=== PATIENT | female | born 1975 | race Caucasian/White ===

== ENCOUNTER → 2016-05-12 | Outpatient (CLI) | payer OTHER ==
[~2016-05-12] MED LIST: METR0.754 TD
--- NOTE | 2016-05-12 11:28 | DIAGNOSTIC IMAGING REPORT ---
THORACIC SPINE 3 VIEWS ROUTINE CLINICAL HISTORY: M51.9 Thoracic disc [id number] back pain and arm numbness COMPARISON STUDY: No previous studies for comparison. FINDINGS: There is a mild scoliosis. There are mild to moderate multilevel degenerative changes. No fractures subluxations or destructive lesions are visualized. The paraspinal line is not displaced. IMPRESSION: Mild scoliosis and degenerative change. No fractures or subluxations are visualized. Electronically signed by: Frankie Abreu M.D. 05/12/2016 11:27 AM Dictated Date/Time: 05/12/2016 11:26 AM
== END | disposition home or self-care (01) ==
LOC: C.RAD1850 11:05
PROVIDERS: ATTEND Internal Medicine
DX: M51.9 Unspecified thoracic, thoracolumbar and lumbosacral intervertebral disc disorder (principal)

== ENCOUNTER → 2016-05-26 | Outpatient (CLI) | payer OTHER ==
[~2016-05-26] MED LIST changes: +GADAVIST IV PRN
--- NOTE | 2016-05-26 10:31 | DIAGNOSTIC IMAGING REPORT ---
MRI THE THORACIC SPINE WITHOUT AND WITH GADOLINIUM CLINICAL HISTORY: Thoracic spine pain, numbness. Arm radiculopathy. COMPARISON STUDY: Conventional radiographic study dated 05/12/2016 FINDINGS: Imaging was performed in the sagittal and axial planes before and after the administration of 8.1 cc of intravenous Gadavist. There are no suspicious areas of marrow replacement No intrinsic cord lesions are visualized. There are no pathologically enhancing lesions. There is a small broad-based T4-5 disc protrusion. There is a small right paracentral T6-7 disc protrusion. There is a small left paracentral T7-T8 disc protrusion. There is a moderate central T9-10 disc protrusion. No paraspinal masses are visualized. IMPRESSION: 1. No pathologic masses identified. 2. T4-5, T6-7, T7-8, and T9-10 disc protrusions. Electronically signed by: Frankie Abreu M.D. 05/26/2016 10:29 AM Dictated Date/Time: 05/26/2016 10:14 AM
== END | disposition home or self-care (01) ==
LOC: C.MRIBC 08:46
PROVIDERS: ATTEND Internal Medicine
DX: M51.9 Unspecified thoracic, thoracolumbar and lumbosacral intervertebral disc disorder (principal); M12.88 Other specific arthropathies, not elsewhere classified, other specified site; M41.9 Scoliosis, unspecified; R20.0 Anesthesia of skin; R93.7 Abnormal findings on diagnostic imaging of other parts of musculoskeletal system; S24.159A Other incomplete lesion at unspecified level of thoracic spinal cord, initial encounter; X58.XXXA Exposure to other specified factors, initial encounter

== ENCOUNTER → 2016-07-16 | Outpatient (CLI) | payer OTHER ==
[~2016-07-16] MED LIST changes: -GADAVIST IV PRN
[2016-07-16 11:35] LABS: BASO % 0.3 %; BASO ABS # 0.02 K/uL (0-0.2); COMPLETE YES; EOS % 1.2 %; HEMATOCRIT 41.1 % (37-47); IG% 0.2 %; LYMPH ABS # 1.95 K/uL (1.2-3.4); MEAN CELL VOLUME 86.2 fL (80-100); MEAN CORPUSCULAR HEMOGLOBIN 28.5 pg (25-34); MEAN CORPUSCULAR HGB CONC 33.1 g/dl (32-36); MEAN PLATELET VOLUME 11.3 fL (7.4-10.4); MONO % 7.7 %; NEUT % 60.6 %; PLATELET COUNT 283 K/uL (130-400); RED BLOOD COUNT 4.77 M/uL (4.2-5.4)
[2016-07-16 11:48] LABS: ALT/SGPT 25 U/L (12-78); BLOOD UREA NITROGEN 15 mg/dl (7-18); BUN/CREATININE RATIO 17.8 (10-20); CARBON DIOXIDE 24 mmol/L (21-32); CHLORIDE 109 mmol/L (98-107); CREATININE 0.82 mg/dl (0.60-1.20); GLUCOSE 95 mg/dl (70-99); POTASSIUM 4.1 mmol/L (3.5-5.1); SODIUM 141 mmol/L (136-145)
[2016-07-16 11:50] LABS: CALCIUM 8.6 mg/dl (8.5-10.1)
[2016-07-16 12:08] LABS: ALB/GLOB RATIO 0.8 (0.9-2); ALKALINE PHOSPHATASE 54 U/L (45-117); AST/SGOT 11 U/L (15-37); THYROID STIMULATING HORMONE 0.677 uIu/ml (0.300-4.500)
[2016-07-16 13:40] LABS: LYME DISEASE AB IGG NEG (NEG); LYME DISEASE AB IGM NEG (NEG)
== END | disposition home or self-care (01) ==
LOC: C.LAB1850 10:09
PROVIDERS: ATTEND Internal Medicine
DX: R26.9 Unspecified abnormalities of gait and mobility (principal)

== ENCOUNTER → 2016-10-26 | Outpatient (CLI) | payer OTHER ==
[2016-10-26 10:42] LABS: C-REACTIVE PROTEIN 0.38 mg/dl (0-0.29); RHEUMATOID FACTOR < 10.0 U/mL (0-15)
[2016-11-01 10:17] LABS: ALBUMIN 3.7 G/DL (3.8-4.8); ANTI-CENTROMERE AB <1.0 NEG AI (<1.0 NEG); ANTI-SS-A <1.0 NEG AI (<1.0 NEG); ANTI-SS-B <1.0 NEG AI (<1.0 NEG); DNA ds CRITHIDIA NEGATIVE (NEGATIVE); GAMMA GLOBULIN 1.2 G/DL (0.8-1.7); MICROSOMAL AB <1 IU/ML (<9); Sm Antibody <1.0 NEG AI (<1.0 NEG); TOTAL PROTEIN 6.9 G/DL (6.2-8.3); VIT B1 PLASMA(THIAMIN)**90353 11 nmol/L (8-30); VITAMIN B6** TC 926 5.6 ng/mL (2.1-21.7)
== END | disposition home or self-care (01) ==
LOC: C.LAB1850 08:58
PROVIDERS: ATTEND Psychiatry & Neurology Neurology
DX: R20.0 Anesthesia of skin (principal); H54.7 Unspecified visual loss; R53.83 Other fatigue; M62.838 Other muscle spasm

== ENCOUNTER → 2016-10-27 | Outpatient (CLI) | payer OTHER ==
[~2016-10-27] MED LIST changes: +GADAVIST IV PRN
--- NOTE | 2016-10-27 20:00 | DIAGNOSTIC IMAGING REPORT ---
BRAIN COMBO FOR MS CLINICAL HISTORY: Gait disturbance. Numbness. Fatigue. Vision problems. COMPARISON STUDY: Head CT March 31, 2010. TECHNIQUE: Utilizing a 1.5 Farzaneh magnet and dedicated coil, multiplanar, multi echo imaging of the brain was performed pre and postcontrast administration according to the multiple sclerosis protocol. Injection of 8 cc of Gadavist IV was uneventful. FINDINGS: There are no areas of restricted diffusion. No acute intracranial hemorrhage, midline shift or mass effect is present. Brain volume is normal. Ventricular system is normal. Basilar cisterns are patent. There are no extra-axial collections. Flow-voids for the major intracranial vessels are present. There is no intracranial mass or pathologic enhancement. No areas of parenchymal signal abnormality are present. Calvarium is unremarkable. Orbits and sinuses are unremarkable. IMPRESSION: Normal MRI of the brain. Electronically signed by: Kris Peter M.D. 10/27/2016 7:59 PM Dictated Date/Time: 10/27/2016 7:55 PM
== END | disposition home or self-care (01) ==
LOC: C.MRI 18:42
PROVIDERS: ATTEND Psychiatry & Neurology Neurology
DX: R53.83 Other fatigue (principal); R26.9 Unspecified abnormalities of gait and mobility; R20.0 Anesthesia of skin; H54.7 Unspecified visual loss

== ENCOUNTER → 2017-02-16 | Outpatient (CLI) | payer OTHER ==
[~2017-02-16] MED LIST changes: -GADAVIST IV PRN
--- NOTE | 2017-02-16 12:42 | DIAGNOSTIC IMAGING REPORT ---
GALLBLADDER-ABD LIMITED CLINICAL HISTORY: R10.13 Abdominal pain, [id number] pain. Nausea. TECHNIQUE: Ultrasound COMPARISON STUDY: None FINDINGS: Combination of gallstones and sludge within the gallbladder lumen. Gallbladder wall 3 mm. No pericholecystic fluid. External hepatic common bile duct 8 mm. Intrahepatic ducts are unremarkable. Visualized components of the pancreas are unremarkable. Right kidney is negative for hydronephrosis. IMPRESSION: Gallstones and sludge within the gallbladder lumen. Mild prominence of the common bile duct at 8 mm. Otherwise normal exam The above report was generated using voice recognition software. It may contain grammatical, syntax or spelling errors. Electronically signed by: Jay Forman M.D. 02/16/2017 12:41 PM Dictated Date/Time: 02/16/2017 12:39 PM
== END | disposition home or self-care (01) ==
LOC: C.ULTR 11:08
PROVIDERS: ATTEND Internal Medicine
DX: K80.20 Calculus of gallbladder without cholecystitis without obstruction (principal); K83.8 Other specified diseases of biliary tract

== ENCOUNTER → 2017-02-25 | Outpatient (CLI) | payer OTHER ==
[~2017-02-25] MED LIST changes: +CHOL20007 PO; +CYAN30003 SL; +CYCL10TA6 PO; +GABA-113 PO; +OXYC-57 PO
== END | disposition home or self-care (01) ==
LOC: C.PAPS 10:20
PROVIDERS: ATTEND Physician Assistant
DX: Z01.419 Encounter for gynecological examination (general) (routine) without abnormal findings (principal)

== ENCOUNTER → 2017-03-02 | Outpatient (CLI) | payer OTHER ==
[~2017-03-02] MED LIST changes: -METR0.754 TD
[2017-03-02 10:09] LABS: BASO % 0.4 %; BASO ABS # 0.02 K/uL (0-0.2); EOS % 1.3 %; EOS ABS # 0.07 K/uL (0-0.5); HEMATOCRIT 36.4 % (37-47); HEMOGLOBIN 11.8 g/dL (12.0-16.0); LYMPH % 38.7 %; LYMPH ABS # 2.03 K/uL (1.2-3.4); MEAN CELL VOLUME 85.4 fL (80-100); MEAN CORPUSCULAR HEMOGLOBIN 27.7 pg (25-34); MEAN CORPUSCULAR HGB CONC 32.4 g/dl (32-36); MEAN PLATELET VOLUME 10.9 fL (7.4-10.4); MONO % 9.5 %; NEUT % 50.1 %; NEUT ABS # 2.63 K/uL (1.4-6.5); PLATELET COUNT 358 K/uL (130-400); RED CELL DISTRIBUTION WIDTH CV 12.6 % (11.5-14.5); WHITE BLOOD COUNT 5.25 K/uL (4.8-10.8)
[2017-03-02 11:08] LABS: ALBUMIN 3.3 gm/dl (3.4-5.0); ALT/SGPT 25 U/L (12-78); AST/SGOT 12 U/L (15-37); BLOOD UREA NITROGEN 10 mg/dl (7-18); CALCIUM 8.7 mg/dl (8.5-10.1); CARBON DIOXIDE 27 mmol/L (21-32); CREATININE 0.79 mg/dl (0.60-1.20); GLUCOSE 89 mg/dl (70-99); POTASSIUM 3.6 mmol/L (3.5-5.1); SODIUM 135 mmol/L (136-145)
[2017-03-02 11:10] LABS: ALKALINE PHOSPHATASE 72 U/L (45-117); TOTAL PROTEIN 7.6 gm/dl (6.4-8.2)
== END | disposition home or self-care (01) ==
LOC: C.LAB1850 08:57
PROVIDERS: ATTEND Surgery
DX: Z01.812 Encounter for preprocedural laboratory examination (principal); K80.20 Calculus of gallbladder without cholecystitis without obstruction

== ENCOUNTER 2017-03-03 05:13 | Day surgery (SDC) | payer OTHER ==
[2017-03-01 15:54] VITALS: BMI 31.0
[~2017-03-03] VITALS: Ht 160 cm; Wt 80.0 kg
[2017-03-03 05:40] VITALS: BP 135/83; PULSE 103; TEMP 36.3; O2SAT 98; Ht 160 cm; Wt 80.0 kg
[2017-03-03] MEDS ORDERED: CEFOXITIN IV 2,000 MG in DEXTROSE 5% 50ML 50 ML IV SCH (06:00)
[2017-03-03] MEDS ORDERED: LACTATED RINGER'S 1000ML 1,000 ML IV SCH ×2 (06:00→09:11)
[2017-03-03] MEDS ORDERED: BUPIVACAINE 0.5 % 5 MG/1 ML MPF 30ML VIAL ONE (06:39)
[2017-03-03] MEDS ORDERED: CONRAY 60% 50 ML VIAL ONE (06:39)
[2017-03-03] MEDS ORDERED: MIDAZOLAM HCL 1 MG/ML 2ML VIAL ONE (06:44)
[2017-03-03] MEDS ORDERED: FENTANYL CITRATE INJ 50 MCG/1 ML 2 ML VIAL ONE ×2 (06:45→08:31)
--- NOTE | 2017-03-03 07:09 | History & Physical Bridge Note ---
H&P Re-Evaluation Bridge Note: I have examined the patient, reviewed the History & Physical and in the interval since the performance of the History & Physical I have noted the following changes of clinical significance: No changes noted
[2017-03-03] MEDS ORDERED: MEPERIDINE HCL 25 MG/ML CARP IV PRN (07:15)
[2017-03-03] MEDS ORDERED: HYDROmorphone INJ 1 MG/ML SYR IV PRN (07:15)
[2017-03-03] MEDS ORDERED: LABETALOL HCL IV 5 MG/ML 20ML IV PRN (07:15)
[2017-03-03] MEDS ORDERED: ATROPINE SULFATE 0.1 MG/ML 5ML SYR IV PRN (07:15)
[2017-03-03] MEDS ORDERED: ONDANSETRON INJ 2 MG/ML 2 ML VIAL IV PRN ×2 (07:15→09:15)
[2017-03-03] MEDS ORDERED: EpHEDrine SULFATE INJ 50 MG/ML AMP IV PRN (07:15)
[2017-03-03] MEDS ORDERED: LIDOCAINE HCL 2% 2 ML VIAL (20MG/ML) ONE (07:48)
[2017-03-03] MEDS ORDERED: PROPOFOL IV EMULSION 10 MG/ML 20 ML VIAL IV ONE (07:48)
[2017-03-03] MEDS ORDERED: GLYCOPYRROLATE INJ 0.2 MG/ML VIAL ONE (07:49)
[2017-03-03] MEDS ORDERED: ONDANSETRON INJ 2 MG/ML 2 ML VIAL ONE (07:49)
[2017-03-03] MEDS ORDERED: ROCURONIUM BROMIDE 10 MG/ML 5 ML VIAL IV ONE (07:49)
[2017-03-03] MEDS ORDERED: DEXAMETHASONE SOD INJ 4 MG/ML VIAL ONE (07:49)
[2017-03-03] MEDS ORDERED: NEOSTIGMINE METHYLSULFATE 5 MG/5 ML SYR ONE (07:49)
[2017-03-03] MEDS ORDERED: IOPAMIDOL 15 ML IV ONE (08:12)
--- NOTE | 2017-03-03 09:03 | [facility] Post Operative Brief Note ---
Immediate Operative Summary Operative Date Mar 03, 2017. Pre-Operative Diagnosis Cholelithiasis Post-Operative Diagnosis Cholelithiasis, Chronic Cholecystitis Procedure(s) Performed Laparoscopic Cholecystectomy Surgeon Dr. Sha Cheatham Non Garment Sewing Machine Operator Surgeon(s) J Carlos Gee PA-C Estimated Blood Loss 10ml Findings Consistent with Post-Op Diagnosis Specimens Permanent Specimen A) Gallbladder and Contents Drains None Anesthesia Type General Complication(s) none Disposition Accompanied Pt To Recover: no Disposition: Recovery Room / PACU
[2017-03-03] MEDS ORDERED: OXYC-57 PO (09:13)
[2017-03-03] MEDS ORDERED: MoRPHine SULFATE 4 MG/ML 1 ML CARP\\VIAL IV PRN (09:15)
[2017-03-03] MEDS ORDERED: OXYCODONE/ACETAMINOPHEN 5-325 TAB PO PRN (09:15)
--- NOTE | 2017-03-03 09:15 | Discharge Instructions ---
Discharge Instructions Date of Service Mar 03, 2017. Visit Reason for Visit: Cholelithiasis Discharge Discharge Diagnosis / Problem: laparosopic cholecystectomy Discharge Goals Goal(s): Decrease discomfort Activity Recommendations Activity Limitations: as noted below Lifting Limitations: no more than 10 pounds Shower/Bathe: no limitations Driving or Machine Use: resume 3 days after discharge Anesthesia . Post Anesthesia Instructions: If you have had General Anesthesia or IV Sedation: * Do not drive today. * Resume driving when surgeon permits. * Do not make important decisions or sign legal documents today. * Call surgeon for: 1. Temperature elevations greater than 101 degrees F. 2. Uncontrollable pain. 3. Excessive bleeding. 4. Persistent nausea and vomiting. 5. Medication intolerance (nausea, vomiting or rash). * For nausea and vomiting use only clear liquids such as: tea, soda, bouillon until nausea subsides, then gradually increase diet as tolerated. * If you have any concerns or questions, call your surgeon's office. If physician is unavailable and it is an emergency, call 911 or go to the nearest emergency room. . Instructions / Follow-Up Instructions / Follow-Up Dr. Cheatham as planned in 2 weeks, call [phone] for any questions Diet Recommendations Recommended Home Diet: no limitations Procedures Procedures Performed: Laparoscopic Cholecystectomy Pending Studies Studies pending at discharge: no Medical Emergencies . Who to Call and When: Medical Emergencies: If at any time you feel your situation is an emergency, please call 911 immediately. . Non-Emergent Contact Non-Emergency issues call your: Surgeon Call Non-Emergent contact if: you have a fever, temperature is above 101.5, your pain is not controlled, wound has increased pain, you have any medication questions . . "Provider Documentation" section prepared by J Carlos Gee. .
--- NOTE | 2017-03-03 09:16 | [facility] Operative Report ---
Operative Report Operative Date Mar 03, 2017. Pre-Operative Diagnosis Cholelithiasis Post-Operative Diagnosis cholelithiasis, chronic cholecystitis Procedure(s) Performed Laparoscopic cholecystectomy Surgeon Dr. Sha Cheatham Netbackup Engineer Surgeon(s) J Carlos Gee PA-C Estimated Blood Loss 10ml Findings Enlarged and inflamed gallbladder with multiple large stones. Gallbladder decompressed with needle to allow for retraction. The gallbladder was partly intrahepatic. A window of safety obtained, cystic duct and artery doubly clipped and divided. Specimens Permanent Specimen A) Gallbladder and Contents Drains none Anesthesia GETA Complication(s) None Disposition Recovery Room / PACU Indications 41-year-old female with symptomatic cholelithiasis, plan for laparoscopic cholecystectomy with possible cholangiogram. The risks of the procedure were discussed, all questions were answered, and the patient agreed to proceed with surgery as planned. Description of Procedure The patient was properly identified, consented, and taken to the operating room where she was placed in the supine position. General endotracheal anesthesia was induced. SCDs and a safety belt were placed. Preoperative antibiotics were administered. The patient's abdomen was prepped and draped in the standard sterile fashion. A surgical timeout was performed and all parties were in agreement that this was the correct patient and procedure to be performed and we continued as planned. An incision was made superior and to the left of the umbilicus overlying the rectus muscle and the Veress needle was inserted. Saline drop test confirmed entry into the peritoneum. The abdomen was insufflated with carbon dioxide which the patient tolerated without incident. The abdomen was then entered using the Optiview technique and a 5 mm trocar. The laparoscope was inserted and no damage from initial trocar or Veress needle placement was noted, no gross abnormalities were noted within the 4 quadrants of the abdomen. An 11 mm port was placed in the subxiphoid position and two 3 mm ports were then placed in the right subcostal position. The patient was placed in reverse Trendelenburg position and rotated towards the left. The gallbladder was very enlarged and significantly inflamed. Gallbladder was aspirated with a large needle to allow for retraction. Omental adhesions to the dome of the gallbladder were taken down bluntly. The dome of the gallbladder was retracted towards the left upper quadrant and the infundibulum was retracted toward the right lower quadrant revealing Calot's triangle. Peritoneal attachments were taken down with electrocautery and blunt dissection. The cystic artery was overlying the gallbladder and was circumferentially dissected and doubly clipped and divided. The cystic duct was circumferentially dissected. A window of safety was obtained showing the cystic duct entering the gallbladder with no aberrant structures noted. The cystic duct was doubly clipped and divided. The gallbladder was then lifted off the gallbladder fossa with electrocautery. The gallbladder was placed in an Endo Catch bag and removed through the subxiphoid port site, which had to be extended to accommodate the gallbladder and large stones. 2 stones were spilled and retrieved, and no other stones are visible. There were still multiple stones in the gallbladder. The right upper quadrant was irrigated and hemostasis was found to be good. 3 mm trochars were removed under direct visualization and the abdomen was allowed to collapse. The subxiphoid port site fascia was closed with 0 Vicryl suture. The wound was irrigated, and the skin of all ports was closed with 4-0 Monocryl subcuticular sutures. Dermabond was placed over the wounds. The patient was extubated in the operating room and taken to the PACU where she recovered without apparent incident. All sponge, instrument and needle counts were correct at the conclusion of the procedure. The patient tolerated the procedure well. The physician's volunteer assistant was present and scrubbed for the entire procedure. She was essential in positioning the patient, prepping and draping, entering the abdomen, retraction and exposure, and closure. I attest to the content of the Intraoperative Record and any orders documented therein. Any exceptions are noted below.
[2017-03-03] MEDS: FENTANYL CITRATE INJ 50 MCG/1 ML 2 ML VIAL IV PRN ×5 (09:28→10:06)
--- NOTE | 2017-03-03 10:14 | Anesthesiology Progress Note ---
Anesthesia Post Op Note Date & Time Mar 03, 2017 at 10:14 Vital Signs Pain Intensity: 6.0 Vital Signs Past 12 Hours Date Time Temp Pulse Resp B/P (MAP) Pulse Ox O2 Delivery O2 Flow Rate FiO2 03/03/17 10:08 101 16 98 03/03/17 10:08 101 16 03/03/17 10:06 135/85 03/03/17 10:03 92 18 03/03/17 10:03 92 18 99 03/03/17 10:01 128/75 03/03/17 09:59 36.3 03/03/17 09:58 92 21 98 03/03/17 09:58 92 21 03/03/17 09:56 131/89 03/03/17 09:53 99 19 98 03/03/17 09:53 101 19 03/03/17 09:52 96 26 99 03/03/17 09:52 96 26 03/03/17 09:51 120/81 03/03/17 09:47 71 24 03/03/17 09:47 72 24 95 03/03/17 09:46 128/77 03/03/17 09:42 78 16 94 03/03/17 09:42 79 16 03/03/17 09:41 83 14 03/03/17 09:41 83 14 128/76 92 03/03/17 09:36 85 24 138/88 100 03/03/17 09:36 84 24 03/03/17 09:31 94 20 145/85 100 03/03/17 09:31 94 20 03/03/17 09:26 98 17 03/03/17 09:26 98 17 148/98 100 03/03/17 09:21 96 18 03/03/17 09:21 96 18 137/87 100 03/03/17 09:17 138/92 03/03/17 09:16 105 16 100 03/03/17 09:16 36.5 97 16 138/92 100 Oxymask 10 03/03/17 09:16 105 16 03/03/17 05:40 36.3 103 16 135/83 (100) 98 Room Air Notes Mental Status: alert / awake / arousable, participated in evaluation Pt Amnestic to Procedure: Yes Nausea / Vomiting: adequately controlled Pain: adequately controlled, improving with treatment Airway Patency, RR, SpO2: stable & adequate BP & HR: stable & adequate Hydration State: stable & adequate Anesthetic Complications: no major complications apparent
[2017-03-03 10:30] VITALS: BP 128/72; PULSE 84; TEMP 36.4; O2SAT 98
[2017-03-03 11:00] VITALS: BP 122/82; PULSE 91; O2SAT 96
[2017-03-03 11:30] VITALS: BP 130/80; PULSE 90; O2SAT 95
[2017-03-03 12:30] VITALS: BP 134/79; PULSE 94; TEMP 36.5; O2SAT 99
[2017-03-05] MEDS ORDERED: CHOL20007 PO (15:54)
[2017-03-05] MEDS ORDERED: CYAN30003 SL (15:54)
[2017-03-05] MEDS ORDERED: CYCL10TA6 PO (15:54)
[2017-03-05] MEDS ORDERED: GABA-113 PO (15:54)
== END 2017-03-03 12:55 | disposition home or self-care (01) ==
LOC: C.ACU 05:13
PROVIDERS: ATTEND Surgery
DX: K80.10 Calculus of gallbladder with chronic cholecystitis without obstruction (principal); G62.9 Polyneuropathy, unspecified; E53.8 Deficiency of other specified B group vitamins; E55.9 Vitamin D deficiency, unspecified; Z82.49 Family history of ischemic heart disease and other diseases of the circulatory system; Z83.3 Family history of diabetes mellitus; Z82.3 Family history of stroke; Z84.1 Family history of disorders of kidney and ureter; Z87.891 Personal history of nicotine dependence

== ENCOUNTER 2017-03-05 16:43 | Emergency (ER) | payer OTHER ==
[~2017-03-05] VITALS: Ht 160 cm; Wt 80.4 kg
[2017-03-05 16:53] VITALS: TEMP 36.9; Ht 160 cm; Wt 80.4 kg
[2017-03-05] MEDS ORDERED: ONDANSETRON INJ 2 MG/ML 2 ML VIAL IV STA ×2 (17:07→19:12)
[2017-03-05] MEDS ORDERED: SODIUM CHLORIDE 0.9% 1000ML 1,000 ML IV STA (17:08)
[2017-03-05] MEDS ORDERED: OPTIRAY 320 IV PRN (17:15)
[2017-03-05] MEDS: HYDROmorphone INJ 1 MG/ML SYR IV PRN ×2 (17:22→18:34)
[2017-03-05 17:39] LABS: BASO % 0.6 %; BASO ABS # 0.04 K/uL (0-0.2); EOS % 0.5 %; EOS ABS # 0.03 K/uL (0-0.5); HEMATOCRIT 36.4 % (37-47); HEMOGLOBIN 12.4 g/dL (12.0-16.0); IG# 0.01 K/uL (0.00-0.02); LYMPH ABS # 1.28 K/uL (1.2-3.4); MEAN CELL VOLUME 84.7 fL (80-100); MEAN CORPUSCULAR HEMOGLOBIN 28.8 pg (25-34); MEAN CORPUSCULAR HGB CONC 34.1 g/dl (32-36); MEAN PLATELET VOLUME 11.2 fL (7.4-10.4); MONO % 12.8 %; MONO ABS # 0.82 K/uL (0.11-0.59); NEUT % 65.9 %; NEUT ABS # 4.23 K/uL (1.4-6.5); PLATELET COUNT 281 K/uL (130-400); RED CELL DISTRIBUTION WIDTH CV 12.5 % (11.5-14.5); WHITE BLOOD COUNT 6.41 K/uL (4.8-10.8)
[2017-03-05] MEDS ORDERED: OXYC-57 PO (17:42)
[2017-03-05 17:57] LABS: ALBUMIN 3.1 gm/dl (3.4-5.0); CALCIUM 8.4 mg/dl (8.5-10.1); CREATININE 0.74 mg/dl (0.60-1.20)
[2017-03-05 18:00] LABS: TOTAL PROTEIN 7.4 gm/dl (6.4-8.2)
--- NOTE | 2017-03-05 18:56 | DIAGNOSTIC IMAGING REPORT ---
ABDOMEN AND PELVIS CT WITH IV CONTRAST CT DOSE: 773.19 mGy.cm HISTORY: upper abd pain, vomiting, 3 days post lap sulma TECHNIQUE: Multiaxial CT images of the abdomen and pelvis were performed following the use of intravenous contrast. A dose lowering technique was utilized adhering to the principles of ALARA. COMPARISON STUDY: Abdominal ultrasound 02/16/2017. FINDINGS: The lung bases are essentially clear. Trace gas and stranding within the right upper quadrant subcutaneous fat. This is likely due to the patient's recent cholecystectomy. Trace pneumoperitoneum. The hepatic flexure of the colon is seen within the gallbladder fossa. There is mild thickening of the hepatic flexure which could be reactive to the recent postoperative change. There is trace fluid at the gallbladder fossa/kadi hepatis. Normal caliber common bile duct. Borderline enlarged periportal lymph nodes. Trace amount of fluid along the undersurface of the left hepatic lobe near the gallbladder fossa. This measures 8 mm in thickness. This connects to the trace fluid at the gallbladder fossa. The pancreas, spleen, adrenal glands, and kidneys are unremarkable. Trace fluid along the paracolic gutter and within the deep pelvis. The bladder, uterus, and ovaries are unremarkable. No evidence for bowel obstruction. The visualized appendix appears unremarkable. IMPRESSION: 1. Status post recent cholecystectomy. 2. Trace fluid at the gallbladder fossa/kadi hepatis and tracking along the undersurface of the left hepatic lobe. There is also trace fluid within the right paracolic cutter and within the deep pelvis. This is nonspecific but is likely within the range of normal limits given the patient's recent cholecystectomy. A small bile leak could also have a similar appearance but is considered less likely. 3. The hepatic flexure of the colon is located at the gallbladder fossa and is slightly thickened. There is also mild thickening of the adjacent duodenum. This is likely reactive to the recent surgery. There is also mild periportal lymphadenopathy which is likely reactive. 4. No abscess identified at this time. Electronically signed by: Mynor Gómez M.D. 03/05/2017 6:54 PM Dictated Date/Time: 03/05/2017 6:44 PM
[2017-03-05 19:25] VITALS: BP 135/89
[2017-03-05 19:30] VITALS: PULSE 95; O2SAT 98
[2017-03-05] MEDS ORDERED: POTASSIUM CHLORIDE 10 MEQ TABCR PO STA (19:30)
[2017-03-05] MEDS ORDERED: PHENERGAN 25MG HOMEPACK PO ONE (19:45)
[2017-03-05] MEDS ORDERED: NORCO 5/325MG HOME PACK PO ONE (19:45)
[2017-03-05] MEDS ORDERED: HYDR-5688 PO (19:56)
[2017-03-05] MEDS ORDERED: PROM25TA9 PO (19:56)
--- NOTE | 2017-03-05 20:32 | EMERGENCY ROOM VISIT NOTE ---
History Report prepared by Sofia: Jonathan Kulkarni Under the Supervision of: Dr. Chapo Ascencio M.D. First contact with patient: 16:57 Chief Complaint: NAUSEA Stated Complaint: PAIN,NAUSEA,VOMITING Nursing Triage Summary: pt presents with nausea, recent surgery gallbladder removed by dr kenney here on unable to keep anything in including pain medication, pt vomiting bile History of Present Illness The patient is a 41 year old female who presents to the Emergency Room with complaints of nausea that began two days ago. She has a past medical history of a cholecystectomy that was performed two days ago. She states that her nausea began while she was in surgical recovery and has been persistent since. While in recovery, she received an injection of nausea mediation but was not given anything to take home. She then began to experience episodes of vomiting since this time. She is unable to keep her pain medications in her system long enough for them to have an effect. She is also experiencing RUQ abdominal pain, centralized chest pain, and bilateral flank pain as well. She is intermittently short of breath secondary to her pain. Her pain is exacerbated with her episodes of vomiting. She notes some difficulty urinating. Pt denies LOC, headache, fevers, chills, diaphoresis, visual changes, neck pain, melena, hematochezia, urinary burning/hematuria, numbness, weakness, lymphadenopathy, rash, or other complaints. She denies any trouble with her incision sites. She notes that after she tried to take her Percocet she felt globally itchy. Source of History: patient Onset: two days ago Position: other (GI) Symptom Intensity: moderate Quality: other (Nausea) Timing: constant Associated Symptoms: + chest pain (centralized), + SOB (intermittently secondary to pain), + vomiting, + abdominal pain (RUQ), + back pain (bilateral flank), + urinary symptoms (difficulty urinating, no other urinary symptoms) Review of Systems See HPI for pertinent positives and negatives. A total of ten systems were reviewed and were otherwise negative. Past Medical & Surgical No other medical problems Family History Patient reports no known family medical history. Social History Smoking Status: Never Smoker Smokeless Tobacco Use: No Drug Use: none Current/Historical Medications Scheduled Cholecalciferol (Vitamin D3), 2,000 INTER.UNIT PO QAM Cyanocobalamin (Vitamin B12), 3,000 MCG SL QAM Gabapentin (Neurontin), 300 MG PO TID Scheduled PRN Cyclobenzaprine Hcl (Flexeril), 10 MG PO HS PRN for Muscle Spasm Hydrocodone/Acetaminophen 5MG/325MG ([place] 5MG/325MG), 1-2 TABS PO Q6H PRN for Pain Oxycodone/Acetaminophen 5MG/325MG (Percocet 5MG/325MG), 1-2 TABLETS PO Q4H PRN for Pain Promethazine Hcl (Phenergan), 25 MG PO Q6H PRN for Nausea Allergies Coded Allergies: No Known Allergies (Unverified , 03/03/17) Physical Exam Vital Signs Date Time Temp Pulse Resp B/P (MAP) Pulse Ox O2 Delivery O2 Flow Rate FiO2 03/05/17 19:30 95 20 98 Room Air 03/05/17 19:25 135/89 03/05/17 19:00 96 25 98 Room Air 03/05/17 18:34 100 20 138/98 100 Room Air 03/05/17 18:04 88 03/05/17 16:53 36.9 99 18 142/94 98 Room Air Physical Exam GENERAL: Awake, alert, very uncomfortable-appearing, in no distress HENT: Normocephalic, atraumatic. Oropharynx unremarkable. EYES: Normal conjunctiva. Sclera non-icteric. NECK: Supple. No nuchal rigidity. FROM. No JVD. RESPIRATORY: Clear to auscultation. CARDIAC: Regular rate, normal rhythm. Extremities warm and well perfused. Pulses equal. ABDOMEN: Soft, non-distended. Tenderness to the epigastrium and RUQ. No rebound or guarding. No masses. Surgical sites clean, dry, and intact. RECTAL: Deferred. MUSCULOSKELETAL: Chest examination reveals no tenderness. The back is symmetrical on inspection without obvious abnormality. There is bilateral CVA tenderness to palpation. No joint edema. LOWER EXTREMITIES: Calves are equal size bilaterally and non-tender. No edema. No discoloration. NEURO: Normal sensorium. No sensory or motor deficits noted. SKIN: No rash or jaundice noted. Medical Decision & Procedures ER Provider Diagnostic Interpretation: Radiology results as stated below per my review and radiologist interpretation: ABDOMEN AND PELVIS CT WITH IV CONTRAST CT DOSE: 773.19 mGy.cm HISTORY: upper abd pain, vomiting, 3 days post lap sulma TECHNIQUE: Multiaxial CT images of the abdomen and pelvis were performed following the use of intravenous contrast. A dose lowering technique was utilized adhering to the principles of ALARA. COMPARISON STUDY: Abdominal ultrasound 02/16/2017. FINDINGS: The lung bases are essentially clear. Trace gas and stranding within the right upper quadrant subcutaneous fat. This is likely due to the patient's recent cholecystectomy. Trace pneumoperitoneum. The hepatic flexure of the colon is seen within the gallbladder fossa. There is mild thickening of the hepatic flexure which could be reactive to the recent postoperative change. There is trace fluid at the gallbladder fossa/kadi hepatis. Normal caliber common bile duct. Borderline enlarged periportal lymph nodes. Trace amount of fluid along the undersurface of the left hepatic lobe near the gallbladder fossa. This measures 8 mm in thickness. This connects to the trace fluid at the gallbladder fossa. The pancreas, spleen, adrenal glands, and kidneys are unremarkable. Trace fluid along the paracolic gutter and within the deep pelvis. The bladder, uterus, and ovaries are unremarkable. No evidence for bowel obstruction. The visualized appendix appears unremarkable. IMPRESSION: 1. Status post recent cholecystectomy. 2. Trace fluid at the gallbladder fossa/kadi hepatis and tracking along the undersurface of the left hepatic lobe. There is also trace fluid within the right paracolic cutter and within the deep pelvis. This is nonspecific but is likely within the range of normal limits given the patient's recent cholecystectomy. A small bile leak could also have a similar appearance but is considered less likely. 3. The hepatic flexure of the colon is located at the gallbladder fossa and is slightly thickened. There is also mild thickening of the adjacent duodenum. This is likely reactive to the recent surgery. There is also mild periportal lymphadenopathy which is likely reactive. 4. No abscess identified at this time. Electronically signed by: Mynor Gómez M.D. 03/05/2017 6:54 PM Dictated Date/Time: 03/05/2017 6:44 PM Laboratory Results 03/05/17 17:25 Red Blood Count 4.30, Mean Corpuscular Volume 84.7, Mean Corpuscular Hemoglobin 28.8, Mean Corpuscular Hemoglobin Concent 34.1, Mean Platelet Volume 11.2, Neutrophils (%) (Auto) 65.9, Lymphocytes (%) (Auto) 20.0, Monocytes (%) (Auto) 12.8, Eosinophils (%) (Auto) 0.5, Basophils (%) (Auto) 0.6, Neutrophils # (Auto ) 4.23, Lymphocytes # (Auto) 1.28, Monocytes # (Auto) 0.82, Eosinophils # (Auto ) 0.03, Basophils # (Auto) 0.04 03/05/17 17:25 Test 03/05/17 17:25 White Blood Count 6.41 K/uL (4.8-10.8) Red Blood Count 4.30 M/uL (4.2-5.4) Hemoglobin 12.4 g/dL (12.0-16.0) Hematocrit 36.4 % (37-47) Mean Corpuscular Volume 84.7 fL (80-100) Mean Corpuscular Hemoglobin 28.8 pg (25-34) Mean Corpuscular Hemoglobin Concent 34.1 g/dl (32-36) Platelet Count 281 K/uL (130-400) Mean Platelet Volume 11.2 fL (7.4-10.4) Neutrophils (%) (Auto) 65.9 % Lymphocytes (%) (Auto) 20.0 % Monocytes (%) (Auto) 12.8 % Eosinophils (%) (Auto) 0.5 % Basophils (%) (Auto) 0.6 % Neutrophils # (Auto) 4.23 K/uL (1.4-6.5) Lymphocytes # (Auto) 1.28 K/uL (1.2-3.4) Monocytes # (Auto) 0.82 K/uL (0.11-0.59) Eosinophils # (Auto) 0.03 K/uL (0-0.5) Basophils # (Auto) 0.04 K/uL (0-0.2) RDW Standard Deviation 38.0 fL (36.4-46.3) RDW Coefficient of Variation 12.5 % (11.5-14.5) Immature Granulocyte % (Auto) 0.2 % Immature Granulocyte # (Auto) 0.01 K/uL (0.00-0.02) Anion Gap 4.0 mmol/L (3-11) Est Creatinine Clear Calc Drug Dose 101.4 ml/min Estimated GFR () 117.5 Estimated GFR (Non- 101.3 BUN/Creatinine Ratio 9.6 (10-20) Calcium Level 8.4 mg/dl (8.5-10.1) Total Bilirubin 0.6 mg/dl (0.2-1) Direct Bilirubin 0.2 mg/dl (0-0.2) Aspartate Amino Transf (AST/SGOT) 311 U/L (15-37) Alanine Aminotransferase (ALT/SGPT) 332 U/L (12-78) Alkaline Phosphatase 105 U/L (45-117) Total Protein 7.4 gm/dl (6.4-8.2) Albumin 3.1 gm/dl (3.4-5.0) Lipase 72 U/L (73-393) Laboratory results reviewed by me Medications Administered Medications (Trade) Dose Ordered Sig/Shoaib Route Start Time Stop Time Status Last Admin Dose Admin Hydromorphone HCl (Dilaudid Inj) 1 mg Q15M PRN IV 03/05/17 17:15 03/19/17 17:14 03/05/17 18:34 1 MG Ondansetron HCl (Zofran Inj) 4 mg NOW STAT IV 03/05/17 17:07 03/05/17 17:08 DC 03/05/17 17:22 4 MG Sodium Chloride 1,000 ml @ 999 mls/hr Q1H1M STAT IV 03/05/17 17:08 03/05/17 18:08 DC 03/05/17 17:22 999 MLS/HR Ondansetron HCl (Zofran Inj) 4 mg NOW STAT IV 03/05/17 19:12 03/05/17 19:13 DC 03/05/17 19:12 4 MG Potassium Chloride (Klor-Con M10) 20 meq NOW STAT PO 03/05/17 19:30 03/05/17 19:31 DC 03/05/17 20:05 20 MEQ Promethazine HCl (Phenergan 25MG Home Pack) 1 homepack UD ONCE PO 03/05/17 19:45 03/05/17 19:46 DC 03/05/17 20:04 1 HOMEPACK Acetaminophen/ Hydrocodone Bitart ([place] 5/325mg Home Pack) 1 homepack UD ONCE PO 03/05/17 19:45 03/05/17 19:46 DC 03/05/17 20:04 1 HOMEPACK ED Course 1657: The patient was evaluated in room C12. A complete history and physical exam was performed. 1707: Ordered Zofran Inj 4 mg IV 1708: Ordered Sodium Chloride 1000 ml @ 999 mls/hr IV 1715: Ordered Dilaudid Inj 1 mg IV 1800: Upon reevaluation, the patient is feeling somewhat better. 190: I discussed the patient's case with Dr. Veloz of General Surgery at this time. He is comfortable with the patient's plan and follow up in the near future. 1911: Ordered Zofran Inj 4 mg IV 1929: Ordered Potassium Chloride 20 meq PO 1944: Ordered Hydrocodone Bitart/ Acetaminophen 1 homepack PO, Promethazine HCl 1 homepack PO 1949: I reevaluated the patient. She is feeling a lot better and is comfortable going home. Discussed results and discharge instructions: She verbalized understanding and agreement. The patient is ready for discharge. Medical Decision Prior records/ancillary studies reviewed. Triage Nursing notes reviewed and agree them. Additional history obtained from family.. The patient's history was concerning for postoperative abdominal pain. Differential diagnosis: Etiologies such as postoperative pain, abscess, bile leak, appendicitis, diverticulitis, PUD, biliary pathology, UTI, pancreatitis, obstruction, mesenteric ischemia, aortic pathology, infections, inflammatory bowel disease, renal colic, as well as others were entertained. Physical examination findings: As above. ER treatment provided: IV Dilaudid 2 IV Zofran 2 Oral potassium Normal saline bolus On reassessment the patient felt much better. Diagnostics interpreted by me: The labs revealed an unremarkable CBC and chemistry panel. Lipase normal. Alkaline phosphatase normal. AST and ALT elevated but not unexpected given the surgery 2 days ago. Imaging studies: CT scan as above The patient appears to have postoperative abdominal pain and nausea/vomiting. She notes having nausea and vomiting right after she came out of anesthesia and daily since. She really wasn't able to tolerate her pain medication. She did not have any nausea medication. The patient is feeling somewhat itchy with the Percocet that she was able to keep down. This was a new issue for her. Consultation: A consultation was placed with the neurosurgeon portrait consultant, Dr. Veloz the case was discussed and diagnostics were reviewed. Since the patient does not have a fever, leukocytosis, or gross abnormality and CT scan he felt conservative management with medication and symptomatically treatment with follow-up in the office was most appropriate. I discussed this with the patient and family and they felt comfortable. The patient will be switched to [place] and will be given Phenergan. By the evaluation outlined above emergent etiologies such as appendicitis, diverticulitis, PUD, abscess, UTI, pancreatitis, obstruction, mesenteric ischemia, aortic pathology, infections, inflammatory bowel disease, renal colic , as well as others were deemed relatively unlikely. The the patient and family were informed about the findings as listed above. All questions were answered and they were pleased with the treatment. Return instructions were outlined and the patient was discharged in stable condition. Outpatient prescription management: Stop Percocet [place] Phenergan Referral: The patient was referred back to their surgeon on Tuesday for a recheck of the current condition. Medication Reconcilliation Current Medication List: was personally reviewed by me Blood Pressure Screening Patient's blood pressure: Elevated blood pressure Blood pressure disposition: Elevated BP felt to be situational Consults Time Called: 1899 Consulting Physician: Dr. Veloz - General Surgery Returned Call: 1908 We discussed the patient's case. He is comfortable with the plan and for future follow up. Impression Primary Impression: Post-operative nausea and vomiting Additional Impression: Upper abdominal pain Scribe Attestation The scribe's documentation has been prepared under my direction and personally reviewed by me in its entirety. I confirm that the note above accurately reflects all work, treatment, procedures, and medical decision making performed by me. Departure Information Dispostion Home / Self-Care Prescriptions Promethazine Hcl (Phenergan) 25 Mg Tab 25 MG PO Q6H Y for Nausea, #10 TAB Prov: Chapo Ascencio MD 03/05/17 Hydrocodone/Acetaminophen 5MG/325MG ([place] 5MG/325MG) Tab 1-2 TABS PO Q6H Y for Pain, #14 TAB Prov: Chapo Ascencio MD 03/05/17 Referrals RV. Whittington MD (PCP) Forms HOME CARE DOCUMENTATION FORM, IMPORTANT VISIT INFORMATION Patient Instructions My [facility] Additional Instructions ABDOMINAL PAIN INSTRUCTIONS: DO NOT drive, drink alcohol, operate machinery, or perform dangerous activities today. You were given medications in the ER that can affect your ability to safely function or operate a vehicle. Stop the Percocet. Hydrocodone/acetaminophen 5/325mg: Take 1-2 pills every 6 hours as needed for pain. Avoid additional Acetaminophen/Tylenol, alcohol, operating machinery or dangerous equipment, working on ladders or roofs, DRIVING, or situations where being under the influence may be dangerous. It is recommended to use a stool softener such as Colace, 100mg twice daily while taking this medication to avoid constipation. Ibuprofen(Motrin, Advil) may be used for fever or pain. Use 600mg every six hours as needed. Take with food. Avoid using more than 2400mg in a 24 hour period. Do not use 2400mg per day for more than three consecutive days without physician direction. Prolonged inappropriate use can lead to stomach upset or ulcers. Phenergan(promethazine) tablets 25mg: Take one every six hours as needed for nausea. Avoid alcohol, operating machinery or dangerous equipment, working on ladders or roofs, DRIVING, or situations where being under the influence may be dangerous. Rest and drink plenty of fluids as tolerated. Slow sips of water or sports drinks are recommended instead of large amounts all at once. Continue current medications. Once your stomach is settled start with a clear liquid diet (jello, soup broth, etc.) and then advance as tolerated. You should avoid full, heavy meals for about 24 hrs from the time your symptoms resolved. Return to the ER immediately for worsening or persistent abdominal pain, vomiting, fevers, chest pains, difficulty breathing, black or bloody stools, worsening of your condition, or as needed. Follow-up with your general surgery on Tuesday. Problem Qualifiers
== END 2017-03-05 20:21 | disposition home or self-care (01) ==
LOC: C.EDB 16:44 → C.EDC 20:21
DX: K91.89 Other postprocedural complications and disorders of digestive system (principal); R11.2 Nausea with vomiting, unspecified; R10.11 Right upper quadrant pain; Z90.49 Acquired absence of other specified parts of digestive tract